=== PATIENT | female | born 1975 | race Caucasian/White ===

== ENCOUNTER 2019-02-06 08:54 | Day surgery (SDC) | payer OTHER ==
[~2019-02-06] VITALS: Ht 170.2 cm; Wt 106.1 kg
[2019-02-06 09:52] LABS: BASOPHILS % (AUTO) 0.3 % (0.0-2.0); EOSINOPHILS # (AUTO) 0.1 K/uL (0-0.4); EOSINOPHILS % (AUTO) 1.7 % (0.0-4.0); LYMPHOCYTES # (AUTO) 2.5 K/uL (2.5-16.5); LYMPHOCYTES % (AUTO) 32.4 % (20.5-51.1); MEAN CORPUSCULAR HEMOGLOBIN 23 pg (27-31); MEAN CORPUSCULAR HGB CONC 31 g/dL (33-37); MEAN CORPUSCULAR VOLUME 73.5 fL (80-94); MONOCYTES # (AUTO) 0.7 K/uL (0.8-1.0); MONOCYTES % (AUTO) 9.2 % (1.7-9.3); NEUTROPHILS # (AUTO) 4.3 K/uL (1.8-7.7); NEUTROPHILS % (AUTO) 56.4 % (42.2-75.2); PLATELET COUNT (AUTO) 239 K/uL (140-450); RED BLOOD CELL COUNT(AUTO) 4.77 MIL/uL (4.20-5.40); RED CELL DISTRIBUTION WIDTH 14.6 % (11.6-13.7); WHITE BLOOD COUNT (AUTO) 7.7 K/uL (4.8-10.8)
[2019-02-06 10:11] LABS: ANION GAP 11.2 (8-16); CREATININE 0.7 mg/dL (0.6-1.3); POTASSIUM 4.2 mmol/L (3.5-5.1)
[2019-02-06 10:12] LABS: PROTHROMBIN TIME 9.8 secs (10.8-13.4)
[2019-02-06] MEDS ORDERED: MIDAZOLAM 2 MG/2 ML VIAL ONE (10:50)
[2019-02-06] MEDS ORDERED: SEVOFLURANE 250 ML BTL INH ONE (10:54)
[2019-02-06] MEDS ORDERED: LIDOCAINE 2% 100 MG/5 ML SYR IVP ONE (10:54)
[2019-02-06] MEDS ORDERED: PROPOFOL 200 MG/20 ML VIAL IV ONE (10:54)
[2019-02-06] MEDS ORDERED: ONDANSETRON 4 MG/2 ML VIAL IVP PRN (11:25)
[2019-02-06] MEDS ORDERED: HYDROmorphone PFS 2 MG/ML SYR ONE (12:31)
[2019-02-06] MEDS: HYDROmorphone 1 MG/ML AMP IVP PRN ×3 (12:34→12:54)
[2019-02-06] MEDS ORDERED: KETOROLAC 30 MG/ML VIAL IVP SCH (12:40)
== END 2019-02-06 14:20 | disposition home or self-care (01) ==
LOC: MDS 08:54 → MMU 09:08 → MDS 14:20
PROVIDERS: ATTEND Obstetrics & Gynecology
DX: N92.0 Excessive and frequent menstruation with regular cycle (principal); N84.0 Polyp of corpus uteri; E66.3 Overweight; D64.9 Anemia, unspecified; Z98.51 Tubal ligation status; Z79.01 Long term (current) use of anticoagulants; Z98.890 Other specified postprocedural states
CPT/HCPCS: 36415; 58558; 80048; 81025; 85025; 85610; 85730; 86886; 86900; 86901; 88305; J1170; J2001; J2250; J2704; J7030; J7120

== ENCOUNTER 2019-04-07 21:15 | Emergency (ER) | payer OTHER ==
[~2019-04-07] VITALS: Ht 170.2 cm; Wt 107.0 kg
[2019-04-07 21:40] VITALS: BP 152/77
--- NOTE | 2019-04-07 21:47 | NUR ---
PT AMBULATED TO THE LOBBY WITH VSS.
--- NOTE | 2019-04-07 22:00 | NUR ---
INFORMED BY [employer] THAT PT HAD ONE EPISODE OF VOMITTING.
--- NOTE | 2019-04-07 22:57 | NUR ---
PT AMBULATED TO BED 11
--- NOTE | 2019-04-07 23:00 | NUR ---
44 Y/O FEMALE PRESENTS TO ED, C/O CONGESTION ALONG WITH N/V X2 WEEKS. PT STATES HAVING GENERALIZED PAIN 8/10. DENIES TAKING ANY MEDICATIONS. LUNG SOUNDS BILAT CLEAR. NO SIGNS OF SOB/DIFFICULTY BREATHING. PT DENIES ANY CHEST PAIN. PT VSS. ERMD AWARE. WILL CONTINUE TO MONITOR.
[2019-04-08] MEDS ORDERED: KETOROLAC 60 MG/2 ML VIAL IM ONE (00:05)
[2019-04-08 00:27] VITALS: BP 123/87
--- NOTE | 2019-04-08 00:27 | NUR ---
PT DISCHARGED WITH PAPERWORK. RX ORCO, PREDISONE, SUDAFED. EDUCATED PT REGARDING MEDICATIONS AND S/E. EDUCATED PT REGARDING D/C DIAGNOSIS AND INSTRUCTIONS. PT VERBALIZED UNDERSTANDING OF TEACHING. TOLD PT TO FOLLOW UP WITH PCP AND WHEN TO RETURN TO ED. PT STABLE CONDITION. ALL QUESTIONS ANSWERED.
== END 2019-04-08 00:27 | disposition home or self-care (01) ==
LOC: MED 21:15
DX: J02.9 Acute pharyngitis, unspecified (principal); R05 Cough
CPT/HCPCS: 71046; 81002; 81025; 96372; 99283; J1885